=== PATIENT | female | born 1965 | race Caucasian/White ===

== ENCOUNTER 2018-04-11 21:12 | Emergency (ER) | payer MEDICAID ==
--- NOTE | 2018-04-11 21:16 | ER Report ---
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 Patient has previous history of palpitations, has been evaluated by soil tester. She's had a treadmill 3 years ago, which was unremarkable. For the last several days. She's not been feeling well since Sunday of last week. She describes some nausea and fatigue, diffuse body aches, but no vomiting She notes no shortness of breath, he's had some occasional diarrhea and again today was worse with more diarrhea. He describes a burning sensation across her anterior chest, spreading to her neck and jaw, also down her body to her lateral thighs. She notes her feet swell but no leg swelling. She notes no exacerbating or alleviating factors. Patient is a survivor of breast cancer. She recently stopped taking her tamoxifen several months ago. Patient reports 2 episodes back in September and October of last year. Similar in nature and of short duration. REVIEW OF SYSTEMS: Respiratory: No cough, no dyspnea. Cardiovascular: As above Gastrointestinal: As above Musculoskeletal: No back pain. Allergies: Coded Allergies: Penicillins (Verified Allergy, Severe, 04/11/18) tetracycline (Verified Allergy, Unknown, 04/11/18) Uncoded Allergies: COMPAZINE (Allergy, Severe, 04/11/18) CONTRAST DYE (Allergy, Mild, 04/11/18) Home Meds Active Scripts Promethazine Hcl (PROMETHAZINE HCL) 25 Mg Tablet, 0.5-1 TAB PO Q8H PRN for NAUSEA/VOMITING, #30 TAB Prov:MEGAN ZIMMERMAN DO 04/11/18 Meclizine Hcl (MECLIZINE HCL) 25 Mg Tab.chew, 25 MG PO TID PRN for dizziness, #30 TAB.CHEW 3 Refills Prov:MEGAN ZIMMERMAN DO 04/11/18 Reported Medications Loratadine/Pseudoephedrine (CLARITIN-D 24 HOUR TABLET) 1 Each Tab.er.24h, 1 EACH PO 04/11/18 Albuterol Sulfate (VENTOLIN HFA) 18 Gm Inh, 1-2 PUFF INH 3-4XD, INH 04/11/18 Omeprazole Magnesium (PRILOSEC OTC) 20 Mg Tablet., 1 TAB PO BID, TAB 04/11/18 Reviewed Nurses Notes: Yes Old Medical Records Reviewed: Yes Constitutional Vital Sign - Last 24 Hours 04/11/18 04/11/18 04/11/18 04/11/18 21:12 21:16 21:16 21:17 Temp 98.4 Pulse ??? 110 110 Resp 18 18 B/P (MAP) 158/91 158/91 (113) Pulse Ox 93 94 O2 Delivery Room Air 04/11/18 04/11/18 04/11/18 04/11/18 21:22 21:27 21:30 21:32 Pulse 110 103 101 Resp 16 12 11 B/P (MAP) 138/90 (106) Pulse Ox 96 95 94 04/11/18 04/11/18 04/11/18 04/11/18 21:37 21:42 21:47 21:52 Pulse 99 98 94 ??? Resp 17 19 16 Pulse Ox 92 93 94 04/11/18 04/11/18 04/11/18 04/11/18 21:57 22:02 22:17 22:30 Pulse ? 95 Resp 20 B/P (MAP) 125/77 (93) Pulse Ox 93 04/11/18 04/11/18 04/11/18 22:32 22:47 23:02 Pulse 84 81 85 Resp 10 9 16 B/P (MAP) 132/85 (101) Pulse Ox 94 92 92 O2 Delivery Room Air Physical Exam Vital signs stable, afebrile, pulse ox normal General Appearance: The patient is alert, has no immediate need for airway protection and no current signs of toxicity. HEENT: Pupils equal and round no injection. Eyes appear proptotic, TMs normal, oropharynx with mild erythema, no exudate or petechiae Respiratory: Chest is non tender, lungs are clear to auscultation. No wheezing or rails Cardiac: regular rate and rhythm, no murmur Gastrointestinal: Abdomen is soft and non tender, no masses, bowel sounds normal. Musculoskeletal: Neck: Neck is supple and non tender. No lymphadenopathy, no thyromegaly Extremities have full range of motion and are non tender. No edema, no calf tenderness Skin: No rashes or lesions. DIFFERENTIAL DIAGNOSIS: After history and physical exam differential diagnosis was considered for chest pain including but not limited to myocardial ischemia, pericarditis pulmonary embolus, chest wall pain, pleural inflammation and pulmonary infectious causes. Medical Decision Making Data Points Result Diagram: 04/11/18214404/11/182144 Laboratory Hematology Test 04/11/18 21:45 Red Blood Count 5.25 M/uL (4.17-5.56) Mean Corpuscular Volume 89.9 fL (80.0-96.0) Mean Corpuscular Hemoglobin 31.8 pg (26.0-33.0) Mean Corpuscular Hemoglobin Concent 35.4 g/dL (32.0-36.0) Red Cell Distribution Width 12.8 % (11.5-14.5) Mean Platelet Volume 11.1 fL (7.2-11.1) Neutrophils (%) (Auto) 55.2 % (39.4-72.5) Lymphocytes (%) (Auto) 24.6 % (17.6-49.6) Monocytes (%) (Auto) 10.6 % (4.1-12.4) Eosinophils (%) (Auto) 8.3 % (0.4-6.7) Basophils (%) (Auto) 1.3 % (0.3-1.4) Nucleated RBC Relative Count (auto) 0.1 /100WBC Neutrophils # (Auto) 5.1 K/uL (2.0-7.4) Lymphocytes # (Auto) 2.3 K/uL (1.3-3.6) Monocytes # (Auto) 1.0 K/uL (0.3-1.0) Eosinophils # (Auto) 0.8 K/uL (0.0-0.5) Basophils # (Auto) 0.1 K/uL (0.0-0.1) Nucleated RBC Absolute Count (auto) 0.01 K/uL Peripheral Blood Smear Yes Y/N D-Dimer Quantitative (PE/DVT) 0.38 ug/ml (0-0.50) Sodium Level 140 mmol/L (137-145) Potassium Level 3.8 mmol/L (3.5-5.0) Chloride Level 103 mmol/L (98-107) Carbon Dioxide Level 27 mmol/L (22-31) Blood Urea Nitrogen 13 mg/dl (7-18) Creatinine 0.80 mg/dl (0.52-1.04) Glomerular Filtration Rate Calc > 60.0 Random Glucose 105 mg/dl (75-110) Calcium Level 9.8 mg/dl (8.4-10.2) Total Bilirubin 0.5 mg/dl (0.2-1.3) Aspartate Amino Transf (AST/SGOT) 66 U/L (0-35) Alanine Aminotransferase (ALT/SGPT) 99 U/L (0-56) Alkaline Phosphatase 72 U/L (0-126) Troponin I < 0.012 ng/ml B-Type Natriuretic Peptide 12 pg/ml (0-100) Total Protein 7.4 g/dl (6.3-8.2) Albumin 4.5 g/dl (3.5-5.0) Human Chorionic Gonadotropin, Qual Negative (NEGATIVE) Chemistry Test 04/11/18 21:45 White Blood Count 9.2 k/uL (4.5-11.0) Red Blood Count 5.25 M/uL (4.17-5.56) Hemoglobin 16.7 g/dL (12.0-16.0) Hematocrit 47.3 % (34.0-47.0) Mean Corpuscular Volume 89.9 fL (80.0-96.0) Mean Corpuscular Hemoglobin 31.8 pg (26.0-33.0) Mean Corpuscular Hemoglobin Concent 35.4 g/dL (32.0-36.0) Red Cell Distribution Width 12.8 % (11.5-14.5) Platelet Count 237 K/uL (150-450) Mean Platelet Volume 11.1 fL (7.2-11.1) Neutrophils (%) (Auto) 55.2 % (39.4-72.5) Lymphocytes (%) (Auto) 24.6 % (17.6-49.6) Monocytes (%) (Auto) 10.6 % (4.1-12.4) Eosinophils (%) (Auto) 8.3 % (0.4-6.7) Basophils (%) (Auto) 1.3 % (0.3-1.4) Nucleated RBC Relative Count (auto) 0.1 /100WBC Neutrophils # (Auto) 5.1 K/uL (2.0-7.4) Lymphocytes # (Auto) 2.3 K/uL (1.3-3.6) Monocytes # (Auto) 1.0 K/uL (0.3-1.0) Eosinophils # (Auto) 0.8 K/uL (0.0-0.5) Basophils # (Auto) 0.1 K/uL (0.0-0.1) Nucleated RBC Absolute Count (auto) 0.01 K/uL Peripheral Blood Smear Yes Y/N D-Dimer Quantitative (PE/DVT) 0.38 ug/ml (0-0.50) Glomerular Filtration Rate Calc > 60.0 Calcium Level 9.8 mg/dl (8.4-10.2) Total Bilirubin 0.5 mg/dl (0.2-1.3) Aspartate Amino Transf (AST/SGOT) 66 U/L (0-35) Alanine Aminotransferase (ALT/SGPT) 99 U/L (0-56) Alkaline Phosphatase 72 U/L (0-126) Troponin I < 0.012 ng/ml B-Type Natriuretic Peptide 12 pg/ml (0-100) Total Protein 7.4 g/dl (6.3-8.2) Albumin 4.5 g/dl (3.5-5.0) Human Chorionic Gonadotropin, Qual Negative (NEGATIVE) Coagulation Test 04/11/18 21:45 D-Dimer Quantitative (PE/DVT) 0.38 ug/ml EKG/Imaging EKG Interpretation 12 lead EK Rhythm: Sinus tachycardia, rate 10 8 bpm [place]: normal QRS: normal, there are Q waves suggesting age indeterminant anterior infarct. ST segments: There are some nonspecific subtle diffuse ST depressions noted in the inferior and lateral leads, there are no old EKGs for comparison Imaging X-ray: Two-view chest x-ray was obtained. I viewed the images myself on the PACS system. My interpretation of the images is: No infiltrate, no effusion, normal mediastinum. The radiologist interpretation had no clinically significant variation from this interpretation. ED Course/Re-evaluation ED Course Patient was admitted to an examination room. H&P was done. The differential diagnoses was considered. Patient with illness for several days involving some nausea and diarrhea. I suspect low-grade food poisoning causing exacerbation of her fibromyalgia symptoms. She also has positive for rheumatoid factor, but her philosophy professor doesn't think she has rheumatoid. Patient presented tonight with burning chest pain. She was worried was cardiac in nature. Her EKG, troponin and d-dimer were all negative. Patient was medicated with Phenergan 6.25 mg by mouth for nausea since she thinks she is very sensitive to medication. She was much improved after the Phenergan. Discharged home with Phenergan. She is also advised to take meclizine for dizziness. Patient advised to follow-up with her doctors. Upon returning home to [facility]. She needs consultation with her philosophy professor, her oncologist. her primary care physician Decision to Disposition Date: Apr 11, 2018 Decision to Disposition Time: 22:52 Depart Departure Latest Vital Signs Vital Signs Date Time Temp Pulse Resp B/P (MAP) Pulse Ox O2 Delivery O2 Flow Rate FiO2 04/11/18 23:02 85 16 132/85 (101) 92 Room Air 04/11/18 21:16 98.4 Impression: Primary Impression: Chest wall pain Additional Impressions: History of fibromyalgia Dizziness History of breast cancer Condition: Improved Disposition: HOME OR SELF-CARE New Scripts Promethazine Hcl (PROMETHAZINE HCL) 25 Mg Tablet 0.5-1 TAB PO Q8H PRN for NAUSEA/VOMITING, #30 TAB Prov: MEGAN ZIMMERMAN DO 04/11/18 Meclizine Hcl (MECLIZINE HCL) 25 Mg Tab.chew 25 MG PO TID PRN for dizziness, #30 TAB.CHEW 3 Refills Prov: MEGAN ZIMMERMAN DO 04/11/18 Patient Instructions: Chest Wall Pain (ED) Additional Instructions: Follow-up with primary care, oncologist, soil tester, philosophy professor for evaluation of your symptoms Take Aleve 220 mg 2 tablets twice daily for pain relief Use Phenergan as needed to control nausea Use meclizine as needed to control dizziness Problem Qualifiers MEGAN ZIMMERMAN DO Apr 11, 2018 21:16
[2018-04-11] MEDS ORDERED: LORA1TAB69 PO (21:25)
[2018-04-11] MEDS ORDERED: ALB18R INH (21:25)
[2018-04-11] MEDS ORDERED: OMEP-218 PO (21:25)
[2018-04-11] MEDS ORDERED: ASPIRIN 81 MG CHEW PO ONE (21:40)
[2018-04-11] MEDS ORDERED: ONDANSETRON 4 MG ODT TABDP SL ONE (21:40)
--- NOTE | 2018-04-11 21:43 | EKG ---
FACILITY: [facility] PATIENT NAME: SHELDON GRAF : [id number] MR: [id number] V: [id number] EXAM DATE: ORDERING PHYSICIAN: MEGAN ZIMMERMAN TECHNOLOGIST: OLIVIER Moon Reason : Blood Pressure : / mmHG Vent. Rate : 108 BPM Atrial Rate : 108 BPM P-R Int : 162 ms QRS Dur : 080 ms QT Int : 344 ms P-R-T Axes : 058 -16 023 degrees QTc Int : 460 ms Sinus tachycardia Cannot rule out Anterior infarct , age undetermined Abnormal ECG No previous ECGs available Confirmed by Chidi Hogan ([id number]) on 04/12/2018 6:28:24 AM Referred By: Confirmed By:Chidi Anthony
[2018-04-11] MEDS ORDERED: PROMETHAZINE HCL 25 MG TAB PO ONE (21:55)
[2018-04-11 21:59] LABS: PLATELET COUNT, AUTOMATED 237 K/uL (150-450)
--- NOTE | 2018-04-11 22:42 | RADIOLOGY IMAGING REPORT ---
FACILITY: [facility] [place] PATIENT NAME: Herminia Bermudez : 1965 MR: [id number] V: [id number] EXAM DATE: ORDERING PHYSICIAN: MEGAN ZIMMERMAN TECHNOLOGIST: Location: [facility] [place] Patient: Herminia Bermudez : 1965 Visit/Account:[id number] Date of Sevice: 04/11/2018 HISTORY: Chest pain DATE: 04/11/2018 9:38 PM TECHNIQUE: CHEST PA AND LAT COMPARISON: none FINDINGS: The cardiomediastinal silhouette is of normal size and contour. No pleural effusion. No pne umothorax. No consolidation. The lungs are adequately expanded. Minimal scarring at the lung apices. IMPRESSION: No acute findings. Report Dictated By: Vishnu Valenzuela MD at 04/11/2018 10:36 PM Report E-Signed By: Vishnu Valenzuela MD at 04/11/2018 10:40 PM [id number]
[2018-04-11] MEDS ORDERED: MECL25TA27 PO (22:57)
[2018-04-11] MEDS ORDERED: PROM-110 PO (22:57)
[2018-04-11 23:02] VITALS: BP 132/85
== END 2018-04-11 23:14 | disposition home or self-care (01) ==
LOC: ER 21:18
DX: R07.89 Other chest pain (principal); M79.7 Fibromyalgia; Z85.3 Personal history of malignant neoplasm of breast; R00.0 Tachycardia, unspecified; R11.0 Nausea; R53.83 Other fatigue; M54.2 Cervicalgia
CPT/HCPCS: 83880; 84443; 84484; 84703; 85025; 85379; 93005; 99284; Q0169; 71046; 82040; 82247; 82310; 82374; 82435; 82565; 82947; 84075; 84132; 84155; 84295; 84450; 84460; 84520